=== PATIENT | male | born 1985 | race Caucasian/White ===

== ENCOUNTER 2016-11-10 11:47 | Emergency (ER) | payer OTHER ==
[~2016-11-10] VITALS: Ht 170.2 cm; Wt 75.2 kg
[~2016-11-10 11:47] MED LIST: ANDRODERM1 EACH TD; MORPHINE SULFAT15 M1 PO; NAPROSYN500 MG PO; NORCO 7.5/321 TABLET PO; PERCOCET 5/31 TABLET PO
[2016-11-10 12:07] VITALS: BP 148/75
[2016-11-10 12:39] LABS: HEMATOCRIT 45.2 % (38.0-50.0); MCH 30.8 PG (29.0-34.0); MCV 88.1 FL (86-99); MEAN PLAT.VOLUME 9.6 uM^3 (9.0-12.4); PLATELET COUNT 269 K/uL (156-360); RBC DIS.WIDTH-CV 11.9 % (11.8-14.6); RBC DIS.WIDTH-SD 37.9 % (39-53); RED BLOOD COUNT 5.13 M/uL (4.00-5.50); WHITE BLOOD COUNT 11.5 K/uL (4.1-10.2)
[2016-11-10 12:48] LABS: CHLORIDE 107 mEq/L (99-109); POTASSIUM 4.4 mEq/L (3.7-5.4); SODIUM 139 mEq/L (136-147)
[2016-11-10 12:50] LABS: GLUCOSE 92 mg/dL (70-99)
[2016-11-10 12:51] LABS: ANION GAP 8 MEQ/L (2-14)
[2016-11-10 12:52] LABS: TOTAL BILIRUBIN 0.3 mg/dL (0.0-1.0)
[2016-11-10 12:54] LABS: ALKALINE PHOSPHATASE 82 IU/L (3-129); GFR ESTIMATE (CALCULATED) > 59 mL/min/
[2016-11-10 12:55] LABS: UREA NITROGEN (BUN) 9 mg/dL (9-23)
[2016-11-10 12:57] LABS: LIPASE 14 U/L (1.0-51.0)
[2016-11-10 13:48] LABS: ADD MIUA? NO; BILIRUBIN NEGATIVE; BLOOD NEGATIVE; COLOR YELLOW ((YELLOW)); GLUCOSE (STRIP) NEGATIVE; KETONES NEGATIVE; LEUKOCYTES NEGATIVE; NITRITE NEGATIVE; PH, URINE 7.5 (5-8); PROTEIN (STRIP) NEGATIVE; SPECIFIC GRAVITY 1.021 (1.000-1.030); UCUL ADDED? NO
[2016-11-10] MEDS ORDERED: OXYCODONE HCL15 MG PO (14:12)
[2016-11-10] MEDS ORDERED: OXYCODONE-APAP1 EACH PO (14:12)
[2016-11-10] MEDS ORDERED: MULTIPLE VITAM1 EAC1 PO (14:13)
[2016-11-10 14:41] LABS: AMPHETAMINES QUANT VALUE 0 NG/ML; BARBITUATES QUANT VALUE 0 NG/ML; BENZODIAZEPINES QUANT VALUE 0 NG/ML; BENZODIAZEPINES, URINE SCREEN Negative (200 ng/mL); MARIJUANA QUANT VALUE 0 NG/ML; OPIATES QUANTITATIVE VALUE 0 NG/ML; PHENCYCLIDINE QUANT VALUE 0 NG/ML
[2016-11-10] MEDS ORDERED: INDOCIN25 MG PO (16:39)
== END 2016-11-10 16:59 | disposition left against medical advice (07) ==
LOC: EME 11:47 → RME 11:47
DX: R10.11 Right upper quadrant pain (principal); R07.81 Pleurodynia; G89.29 Other chronic pain; M54.9 Dorsalgia, unspecified; Z79.891 Long term (current) use of opiate analgesic; F17.200 Nicotine dependence, unspecified, uncomplicated
CPT/HCPCS: 71020; 74176; 80053; 81003; 83690; 85027; 99281; 99284